=== PATIENT | male | born 1955 | race Two or more races ===

== ENCOUNTER 2018-09-19 18:11 | Emergency (ER) | payer OTHER ==
[2018-09-19] MEDS ORDERED: fentaNYL 100 MCG/2 ML INJ NASAL ONE (20:29)
--- NOTE | 2018-09-19 20:29 | EDPHY ---
H & P [facility] Exam Limitations: No limitations - Personal History Current Tetanus/Diphtheria Vaccine: Yes - Medical/Surgical History Hx Asthma: No Hx Chronic Respiratory Disease: No Hx Diabetes: Yes Hx Cardiac Disease: Yes Hx Renal Disease: No Hx Cirrhosis: No Hx Alcoholism: No Hx HIV/AIDS: No Hx Splenectomy or Spleen Trauma: No Other PMH: DM, HTN, high cholesterol, peripheral neuropathy, cardiac cath in 2004 here, STENT placed ?, - Family History Significant Family History: No pertinent family hx - Social History Smoking Status: Heavy smoker Alcohol Use: None Time Seen by Provider: 09/19/18 20:25 HPI/ROS: CHIEF COMPLAINT: Left ankle pain HISTORY OF PRESENT ILLNESS: Patient is a 63-year-old man who was mopping 3 hr ago when he slipped and twisted his left ankle. He states that he inverted it. He denies knee or foot pain. He has significant swelling and point tenderness to the lateral malleolus. He has not been ambulating. Severity: Moderate Modifying factors: None REVIEW OF SYSTEMS: Constitutional: denies: chills, fever, recent illness, recent injury EENTM: denies: blurred vision, double vision, nose congestion Respiratory: denies: cough, shortness of breath Cardiac: denies: chest pain, irregular heart rate, lightheadedness, palpitations Gastrointestinal/Abdominal: denies: abdominal pain, diarrhea, nausea, vomiting, blood streaked stools Genitourinary: denies: dysuria, frequency, hematuria, pain Musculoskeletal: See HPI Skin: denies: lesions, rash, jaundice, bruising Neurological: denies: headache, numbness, paresthesia, tingling, dizziness, weakness Hematologic/Lymphatic: denies: blood clots, easy bleeding, easy bruising Immunologic/allergic: denies: HIV/AIDS, transplant 10 systems reviewed and negative except as noted EXAM: GENERAL: Well-appearing, well-nourished and in no acute distress. HEAD: Atraumatic, normocephalic. EYES: Pupils equal round and reactive to light, extraocular movements intact, sclera anicteric, conjunctiva are normal. ENT: TMs normal, nares patent, oropharynx clear without exudates. Moist mucous membranes. NECK: Normal range of motion, supple without lymphadenopathy or JVD. LUNGS: Breath sounds clear to auscultation bilaterally and equal. No wheezes rales or rhonchi. HEART: Regular rate and rhythm without murmurs, rubs or gallops. ABDOMEN: Soft, nontender, normoactive bowel sounds. No guarding, no rebound. No masses appreciated. BACK: No CVA tenderness, no spinal tenderness, step-offs or deformities EXTREMITIES: Left ankle with significant swelling, point tenderness to lateral and medial malleolus. No bony tenderness in the foot or knee. He does have some distal tib-fib pain with squeezing. Normal pulses and sensation distally. NEUROLOGICAL: Cranial nerves II through XII grossly intact. Normal speech, normal gait. 5/5 strength, normal movement in all extremities, normal sensation , normal reflexes PSYCH: Normal mood, normal affect. SKIN: Warm, dry, normal turgor, no visible rashes or lesions. (Gideon Murillo) Constitutional: Initial Vital Signs Temperature (C) 36.5 C 09/19/18 18:15 Heart Rate 82 09/19/18 18:15 Respiratory Rate 18 09/19/18 18:15 Blood Pressure 155/89 H 09/19/18 18:15 O2 Sat (%) 99 09/19/18 18:15 O2 Delivery Mode Room Air Allergies/Adverse Reactions: No Known Allergies Allergy (Unverified 10/30/15 13:35) Home Medications: Medication Instructions Recorded Aspirin [Aspirin 81mg (*)] 81 mg PO DAILY 10/30/15 Clopidogrel Bisulfate [Plavix] 75 mg PO DAILY 10/30/15 Insulin Aspart [Novolog Flexpen] 10 unit SQ .2-3X/DAY 10/30/15 Insulin Detemir [Levemir Flextouch] 66 unit SQ DAILY 10/30/15 Lisinopril [Zestril 40 mg (*)] 40 mg PO DAILY 10/30/15 Metformin HCl [Metformin 1000 mg] 1,000 mg PO BIDMEAL 10/30/15 Metoprolol Tartrate [Lopressor 25 25 mg PO BID 10/30/15 mg (*)] Naproxen Sodium [Aleve 220 MG (*)] 220 mg PO DAILY 10/30/15 Pentoxifylline [TRENTAL 400mg (*)] 400 mg PO BID 10/30/15 Rosuvastatin Calcium [Crestor 40mg 40 mg PO DAILY 05/16/16 (*)] Spironolactone [Aldactone 25 MG 25 mg PO DAILY 10/30/15 (*)] Gabapentin [Neurontin 300 MG (*)] 300 mg PO HS #30 cap 11/01/15 Nitroglycerin [Nitrostat 0.4 mg 0.4 mg SL Q5M PRN #1 btl 11/01/15 (*)] oxyCODONE IR [Oxycodone Ir (*)] 5 mg PO Q4 PRN #0 tab 11/01/15 Hydrocodone/APAP 5/325 [[place] 1 - 2 tab PO Q4-6PRN PRN #20 tab 09/19/18 5/325 (*)] Medical Decision Making - Diagnostics Imaging Results: Imaging Impressions Ankle X-Ray 09/19/18 20:25 Impression: Trimalleolar fracture. LEFT ANKLE (3 Views), at 9:06 PM: There is a transversely-oriented mildly displaced and distracted medial malleolar fracture, as well as a fracture through the peripheral lateral margin of the lateral malleolus, and on the lateral view there is an obliquely-oriented posterior malleolar fracture. A punctate ossification is seen near the distal lateral tibiofibular articulation is observed. A syndesmotic injury is not excluded. There is diffuse soft tissue swelling. The talar dome is well-contoured. The subtalar joint is normal. Vascular calcifications are again noted. Impression: Trimalleolar fracture. Tibia/Fibula X-Ray 09/19/18 20:29 Impression: Trimalleolar fracture. LEFT ANKLE (3 Views), at 9:06 PM: There is a transversely-oriented mildly displaced and distracted medial malleolar fracture, as well as a fracture through the peripheral lateral margin of the lateral malleolus, and on the lateral view there is an obliquely-oriented posterior malleolar fracture. A punctate ossification is seen near the distal lateral tibiofibular articulation is observed. A syndesmotic injury is not excluded. There is diffuse soft tissue swelling. The talar dome is well-contoured. The subtalar joint is normal. Vascular calcifications are again noted. Impression: Trimalleolar fracture. ED Course/Re-evaluation: 9:00 p.m. the patient's x-rays have not yet been done. He did receive pain medication. I will transfer care to Dr. Masterson pending x-rays and further treatment. (Gideon Murillo) I took over care of this patient at 9:[address] Gideon Murillo. We are awaiting results on a left ankle and tib-fib x-ray series. Left ankle x-ray series in tib-fib x-ray series significant for trimalleolar fracture with mild displacement. 10:20 p.m., the patient was re-evaluated, snailer was present in the room. Results of x-rays discussed. The left foot and ankle was re-examined. There is soft tissue swelling. There is no significant deformity to indicate a significant subluxation or dislocation. The left foot is neurovascularly intact. He does not have any tenderness on palpation of the proximal fibula. Procedure: Splint placement. A [address] ortho glass splint was applied to the left foot and ankle. After application of the splint I returned and re-examined the patient. The splint was adequately immobilizing the joint and distal to the splint the patient's circulation and sensation was intact. 10:25 p.m., I spoke with on-call orthopedic surgeon Dr. Sabino Preciado. We discussed results of the patient's x-rays which he viewed personally. Plan will be to place the patient in a well-padded 3 way splint. He will be provided crutches. He will be instructed on nonweightbearing. He is to follow up with Dr. Preciado in his office on Friday or Friday of this coming week. Operative management will then be planned for mid week. 10:40 p.m. This plan was discussed with the patient via snailer. I will prescribe him ibuprofen for the next couple of days as well as Vicodin for pain management. He was provided with crutches. He was instructed on using his crutches. He was splinted. He understands his follow-up. Return to emergency department precautions were thoroughly reviewed with him. All of his questions were answered. He was discharged from the emergency department in good condition with a family member. (Gutierrez Masterson) Differential Diagnosis: Partial list of the Differential diagnosis considered include but were not limited to; ankle sprain, ankle fracture, tib-fib injury and although unlikely based on the history and physical exam, I also considered foot injury, knee injury, vascular injury, nerve injury. (Gideon Murillo) - Data Points Medications Given: Discontinued Medications Hydrocodone Bitart/Acetaminophen ([place] 5/325) 2 tab PO EDNOW ONE Stop: 09/19/18 20:32 Last Admin: 09/19/18 20:36 Dose: 2 tab Departure - Departure Disposition: Home, Routine, Self-Care Clinical Impression: Closed left ankle fracture Condition: Good Instructions: Ankle Fracture (ED) Additional Instructions: Read and follow provided instructions. Use crutches as instructed. Keep splint in place until seen by Orthopedics on follow-up. Absolutely no weight-bearing to your left foot and ankle until cleared by Orthopedics. Call the office of Dr. Preciado on Friday for follow-up appointment time in his clinic. Narcotic pain medication: Take 1-2 every 4-6 hours as needed for pain. Ibuprofen dosin mg every 6 hours with meals for the next 3 days only. Take only as needed for pain. Return to the emergency department for worsening pain, loss of sensation in your toes, discoloration in your toes or foot or other serious concerns. Referrals: Angelica Preciado MD [Medical Doctor] - As per Instructions Prescriptions: Hydrocodone/APAP 5/325 [[place] 5/325 (*)] 1 - 2 tab PO Q4-6PRN PRN #20 tab PRN Reason: Pain, Moderate
[2018-09-19] MEDS ORDERED: HYDROCODONE/APAP 5/325 TAB PO ONE (20:31)
[2018-09-19 22:16] VITALS: BP 157/78
[2018-09-19] MEDS ORDERED: HYDROCOD/APAP 5/325 PREPACK#6 BTL TAKEHOME ONE (22:57)
== END 2018-09-19 23:07 | disposition home or self-care (01) ==
PROC: 2W3RX1Z Immobilization of Left Lower Leg using Splint (ICD-10-PCS; principal; 2018-09-19)
DX: S82.852A Displaced trimalleolar fracture of left lower leg, initial encounter for closed fracture (principal); W18.49XA Other slipping, tripping and stumbling without falling, initial encounter; Y93.E5 Activity, floor mopping and cleaning; Y99.0 Civilian activity done for income or pay; Y92.9 Unspecified place or not applicable

== ENCOUNTER 2018-10-29 11:56 | Day surgery (SDC) | payer OTHER ==
--- NOTE | 2018-10-28 15:51 | PDGENHP ---
History & Physical Chief Complaint: L ankle pain History of Present Illness: Chief Complaint. None recorded. Patient's Care Team. Orthopedic Surgeon: JANEE PERKINS M.D. Flux Mixer (Worker's Comp): ROLANDO MYERS: , . Vitals. None recorded. Allergies. Allergies not reviewed (last reviewed 10/01/2018). NKDA. Medications. Medications not reviewed (last reviewed 10/01/2018). oxyCODONE 5 mg tablet. Take 1 tablet(s) every 4 hours by oral route. 09/24/18 Jaimee Childs M.D. Vaccines. None recorded. Problems. Reviewed Problems. Closed trimalleolar fracture - Onset: 09/24/2018, Left. Family History. Family History not reviewed (last reviewed 10/01/2018). Unspecified Relation- Well adult. Social History. Social History not reviewed (last reviewed 10/01/2018). Smoking Status: Current every day smoker. Smoker ( 1/2 PPD). 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 Chewing tobacco: none. Alcohol intake: None. Caffeine intake: None. Exercise level: Occasional. Hand Dominance: Right. Education: 12. Live alone or with others?: alone. Surgical History. Surgical History not reviewed (last reviewed 10/01/2018). Past Medical History. Past Medical History not reviewed (last reviewed 10/01/2018). No Medical History: Y. Blood Clots: Y. Diabetes: Y. Heart Problems: Y. Screening. None recorded. ROS. None recorded. Physical Exam. None recorded. Assessment / Plan. L ankle trimalleolar fracture -- begin ROM exercises. Trimalleolar ORIF on 10/29/18. Simone presents for repeat evaluation of his left ankle trimalleolar fracture. He was seen at [facility] on 10/21/18 , and reports that he was cleared for surgery. He reports that he continues to have significant pain. 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 He has coronary stents. NOT on plavix. He reports that he is not currently taking an anticoagulant. He previously took Plavix, and reports he stopped taking it 1 year ago. L ANKLE: diffuse swelling and redness. skin appear heathy. stiff motion with pain. L ankle 3v XRs (10/27/18): trimalleolar fracture, does not appear unstable. I encouraged him to remove the boot frequently and work on ROM exercises, and massage the foot and ankle to avoid stiffness and CRPS. I also recommend a warm Epson salt soak once per day. we will touch base with cardiology clinic. plan for orif bimall equivalent. 30 minutes was spent in face to face contact, greater than 50% of which was spent discussing and coordinating patient care. LEFT TRIMALLEOLAR FRACTURES SURGICAL BOOKING
--- NOTE | 2018-10-29 09:06 | PDHPUP ---
History & Physical Update H&P update statement: This history and physical update is based on an assessment of the patient which was completed after admission or registration (within 24 hours), but prior to the surgery/procedure. H&P update: no change in patient's condition since H&P completed
[2018-10-29] MEDS ORDERED: ceFAZolin 2 GM/DEXTROSE 100 ML IV ONE (12:46)
[2018-10-29] MEDS ORDERED: LR 1,000 ML IV ONE (12:52)
[2018-10-29] MEDS ORDERED: POLYMYXIN B SULFATE 500,000 UNIT/10 ML SYR IRR ONE (12:56)
[2018-10-29] MEDS ORDERED: BUPIVACAINE 0.5% 30 ML SDV ONE (12:56)
[2018-10-29] MEDS ORDERED: BACITRACIN 50,000 UNITS/10 ML SYR IRR ONE (12:57)
[2018-10-29] MEDS ORDERED: MIDAZOLAM 2 MG/2 ML VIAL ONE (13:08)
[2018-10-29] MEDS ORDERED: MIDAZOLAM 2 MG/2 ML VIAL IVP ONE (13:09)
--- NOTE | 2018-10-29 13:09 | PDANEPAE ---
ANE History of Present Illness L ankle ORIF ANE Past Medical History - Cardiovascular History Hx Hypertension: Yes Hx Arrhythmias: No Hx Chest Pain: No Hx Coronary Artery / Peripheral Vascular Disease: Yes Hx CHF / Valvular Disease: No Hx Palpitations: No Cardiovascular History Comment: stents placed 2016 - Pulmonary History Hx COPD: No Hx Asthma/Reactive Airway Disease: No Hx Recent Upper Respiratory Infection: No Hx Oxygen in Use at Home: No Hx Sleep Apnea: No Sleep Apnea Screening Result - Last Documented: Positive Pulmonary History Comment: uses electronic cigarettes. after accident blood clot found in lungs - Neurologic History Hx Cerebrovascular Accident: No Hx Seizures: No Hx Dementia: No - Endocrine History Hx Diabetes: Yes Endocrine History Comment: IDDM - Renal History Hx Renal Disorders: No - Liver History Hx Hepatic Disorders: No - Neurological & Psychiatric Hx Hx Neurological and Psychiatric Disorders: Yes Neurological / Psychiatric History Comment: neuropathy - Cancer History Hx Cancer: No - Congenital Disorder History Hx Congenital Disorders: No - GI History Hx Gastrointestinal Disorders: Yes Gastrointestinal History Comment: tums - Other Health History Other Health History: none - Chronic Pain History Chronic Pain: Yes (neuropathy) - Surgical History Prior Surgeries: none in last 5 yrs. stents placed 2016 ANE Review of Systems Review of systems is: negative Review of Systems: - Exercise capacity METS (RN): 4 METS ANE Patient History - Allergies Allergies/Adverse Reactions: No Known Allergies Allergy (Unverified 10/30/15 13:35) - Home Medications Home medications: home medication list seen and reviewed Home Medications: Aspirin [Aspirin 81mg (*)] 81 mg PO DAILY 10/30/15 [Last Taken 10/28/18] Clopidogrel Bisulfate [Plavix] 75 mg PO DAILY 10/30/15 [Last Taken 10/28/18] Insulin Aspart [Novolog Flexpen] 10 unit SQ .2-3X/DAY 10/30/15 [Last Taken 10/28] Insulin Detemir [Levemir Flextouch] 66 unit SQ DAILY 10/30/15 [Last Taken ] Lisinopril [Zestril 40 mg (*)] 40 mg PO DAILY 10/30/15 [Last Taken 10/28/18] Metformin HCl [Metformin 1000 mg] 1,000 mg PO BIDMEAL 10/30/15 [Last Taken 10/28] Metoprolol Tartrate [Lopressor 25 mg (*)] 25 mg PO BID 10/30/15 [Last Taken ] Naproxen Sodium [Aleve 220 MG (*)] 220 mg PO DAILY 10/30/15 [Last Taken 10/28/18 ] Pentoxifylline [TRENTAL 400mg (*)] 400 mg PO BID 10/30/15 [Last Taken 10/28/18] Rosuvastatin Calcium [Crestor 40mg (*)] 40 mg PO DAILY 10/30/15 [Last Taken ] Spironolactone [Aldactone 25 MG (*)] 25 mg PO DAILY 10/30/15 [Last Taken ] - NPO status NPO Status: no food or drink >8 hours NPO Since - Liquids (Date): 10/29/18 NPO Since - Liquids (Time): 08:00 NPO Since - Solids (Date): 10/28/18 - Anes Hx Anes Hx: no prior problems - Smoking Hx Smoking Status: Light smoker - Family Anes Hx Family Anes Hx: none Family Hx Anesthesia Complications: none ANE Labs/Vital Signs - Labs Result Diagrams: 10/29/18 12:50 - Vital Signs Vital Signs: reviewed preoperatively; see RN documention for details Blood Pressure: 126/86 Heart Rate: 63 Respiratory Rate: 15 O2 Sat (%): 98 Height: 162.56 cm Weight: 63.503 kg ANE Physical Exam - Airway Neck exam: FROM Mallampati Score: Class 1 Mouth exam: dentures - Pulmonary Pulmonary: no respiratory distress - Cardiovascular Cardiovascular: regular rate and rhythym - ASA Status ASA Status: III ANE Anesthesia Plan Anesthesia Plan: GA w LMA Regional Anesthesia: popliteal SNB
[2018-10-29] MEDS ORDERED: LIDOCAINE 2% 100 MG/5 ML SYR ONE (13:30)
[2018-10-29] MEDS ORDERED: DEXAMETHASONE 4 MG/ML VIAL ONE (13:30)
[2018-10-29] MEDS ORDERED: fentaNYL 100 MCG/2 ML INJ ONE ×3 (13:30→15:11)
[2018-10-29] MEDS ORDERED: ONDANSETRON 4 MG/2 ML VIAL ONE (13:30)
[2018-10-29] MEDS ORDERED: PROPOFOL 200 MG/20 ML VIAL ONE (13:31)
[2018-10-29] MEDS ORDERED: ROPIVACAINE HCL 150 MG/30 ML INJ ONE (14:40)
[2018-10-29] MEDS ORDERED: ACETAMINOPHEN 325 MG TAB PO PRN (14:43)
[2018-10-29] MEDS ORDERED: ONDANSETRON 4 MG/2 ML VIAL IVP PRN ×2 (14:43→14:50)
[2018-10-29] MEDS ORDERED: HYDROCODONE/APAP 5/325 TAB PO PRN ×2 (14:43→14:50)
[2018-10-29] MEDS ORDERED: OXYCODONE/APAP 5/325 TAB PO PRN (14:43)
[2018-10-29] MEDS ORDERED: ALBUTEROL 3 ML DEYVIAL IH PRN (14:50)
[2018-10-29] MEDS ORDERED: HYDROmorphONE/DILAUDID 1 MG/ML INJ IVP PRN (14:50)
[2018-10-29] MEDS ORDERED: MEPERIDINE 25 MG/0.5 ML AMP IVP PRN (14:50)
[2018-10-29] MEDS ORDERED: DEXAMETHASONE 4 MG/ML VIAL IVP PRN (14:50)
[2018-10-29] MEDS ORDERED: oxyCODONE IR 5 MG TAB PO PRN (14:50)
[2018-10-29] MEDS ORDERED: LABETALOL HCL 5 MG/ML 20 ML MDV IVP PRN (14:50)
[2018-10-29] MEDS ORDERED: PROMETHAZINE HCL 25 MG/ML INJ IVP PRN (14:50)
[2018-10-29] MEDS ORDERED: NALOXONE HCL 0.4 MG/ML INJ IVP PRN (14:50)
--- NOTE | 2018-10-29 14:53 | POSTANESTH ---
Post Anesthetic Evaluation Cardiovascular Status: Similar to Pre-Op Cond Respiratory Status: Similar to Pre-op Cond. Level of Consciousness/Mental Status: Can Participate in Eval, Mildly Sleepy, Arousable Pain Control: Adequate, Prn Tx Ordered Nausea/Vomiting Control: Adequate, Prn Tx Ordered Complications Possibly Related to Anesthesia: None Noted
[2018-10-29] MEDS: fentaNYL 100 MCG/2 ML INJ IVP PRN ×3 (14:57→15:25)
[2018-10-29] MEDS ORDERED: oxyCODONE IR 5 MG TAB ONE (15:07)
[2018-10-29 16:09] VITALS: BP 118/57
--- NOTE | 2018-10-29 17:57 | GOP ---
[f rep st] OPERATIVE REPORT DATE OF OPERATION: SURGEON: Angelica Preciado MD PREOPERATIVE DIAGNOSIS: Unstable left bimalleolar ankle fracture. POSTOPERATIVE DIAGNOSIS: Unstable left bimalleolar ankle fracture. PROCEDURE PERFORMED: Open reduction, internal fixation of bimalleolar ankle fracture. FINDINGS: ESTIMATED BLOOD LOSS: Minimal. INDICATIONS: The patient is a 63-year-old male, an injury to his left ankle. Had a cardiac workup, deemed fit for surgery. He is approximately over 2 weeks from the initial date of injury. DESCRIPTION OF PROCEDURE: Patient identified in the preoperative holding area. Consent, laterality, and preoperative antibiotics were confirmed delivered. All questions were answered. He had neutral dorsiflexion. Skin looked healthy. Patient brought into the operating room. Popliteal block by ultrasound by Anesthesia. General anest hesia. Left thigh tourniquet placed. A greater trochanteric bump was used to neutralize the rotatio n of the left lower extremity. The left lower extremity prepped and draped in sterile fashion. Surg ical time-out was performed. Esmarch exsanguination to 250 mmHg. Total tourniquet time was 45 minut es. A standard lateral incision was made. The fracture started to heal. It was a short oblique, almost transverse like fracture of the distal fibula. We chose a 6 hole plate. Placed a compression screw and then locking screws and then compression screws proximally. We confirmed a nice reduction on the fluoroscopic mini C-arm. We then went to the medial side. With slight external rotation, we made a longitudinal incision directly over the medial malleolus. Found the transverse fracture again, had subperiosteal hinging. We reduced this, placed a K-wire and placed a cannulated screw. We had nice reduction. AP and slightly internal rotation mortise view showed stable reduction. He did have a sl ight widening of the medial clear space, but instability was not his issue. The wounds were copiously washed out with 250 cc of warm normal saline. Vertical mattress sutures of nylon were placed in the incision. A sterile dressing was applied with Xeroform, 4x4s, ABD, and a w ell-padded Koffi. We placed him back in the boot. It did not seem like he had any pressure on the med ial and lateral sides. Anesthesiologist also did a saphenous nerve block. TOTAL TOURNIQUET TIME: 45 minutes. DISPOSITION: Extubated and awake to the PACU in stable condition. /[id number]/MODL
== END 2018-10-29 16:08 | disposition home or self-care (01) ==
LOC: FSGY 11:56
PROVIDERS: ATTEND Orthopaedic Surgery
PROC: 0SSG04Z Reposition Left Ankle Joint with Internal Fixation Device, Open Approach (ICD-10-PCS; principal; 2018-10-29 13:15)
DX: S82.852A Displaced trimalleolar fracture of left lower leg, initial encounter for closed fracture (principal); W18.49XA Other slipping, tripping and stumbling without falling, initial encounter; Y93.E5 Activity, floor mopping and cleaning; Y92.9 Unspecified place or not applicable; Y99.0 Civilian activity done for income or pay; I25.2 Old myocardial infarction; I25.10 Atherosclerotic heart disease of native coronary artery without angina pectoris; E11.9 Type 2 diabetes mellitus without complications; E78.5 Hyperlipidemia, unspecified; I10 Essential (primary) hypertension; Z95.5 Presence of coronary angioplasty implant and graft
CPT/HCPCS: C1713; J0690; J1100; J2001; J2250; J2405; J2704; J2795; J3010